=== PATIENT | female | born 1950 | race Caucasian/White ===

== ENCOUNTER 2017-09-06 00:17 | Inpatient (IN) | payer MEDICARE, OTHER ==
[2017-09-05 15:55] LABS: INR 0.98
[2017-09-06] VITALS (13 sets, daily range): BP systolic 124–151; BP diastolic 60–96
[~2017-09-06] VITALS: Ht 182.9 cm; Wt 87.4 kg
[~2017-09-06 00:17] MED LIST: DOCU100C49 PO; HYDR-317 PO; HYDR-385 PO; HYDR-4309 PO; OXYC-865 PO
[2017-09-06] MEDS ORDERED: ROPIVACAINE 0.2% 20 ML VIAL ONE (06:36)
[2017-09-06] MEDS ORDERED: LIDO/EPI 2% MPF 1:200,000 20ML ONE (06:36)
[2017-09-06] MEDS ORDERED: VANCOMYCIN(*) 1 GM VIAL 1 GM, VANCOMYCIN (*) 0.5 GM VIAL 0.25 GM in NS(*) 0.9% 250 ML B... IVPB ONE (07:45)
[2017-09-06] MEDS ORDERED: ROCURONIUM BROM 10 MG/ML 10 ML ONE (08:31)
[2017-09-06] MEDS ORDERED: LIDOCAINE MPF 1% 5 ML VIAL ONE (08:31)
[2017-09-06] MEDS ORDERED: DEXAMETHASONE SOD PHOS 10MG/ML ONE (08:31)
[2017-09-06] MEDS ORDERED: PROPOFOL EMUL(*) 10MG/ML 20 ML 20 ML ONE (08:31)
[2017-09-06] MEDS ORDERED: fentaNYL CITR 100 MCG/2 ML AMP ONE ×2 (08:31→11:02)
[2017-09-06] MEDS ORDERED: ONDANSETRON 4 MG/2 ML VIAL ONE (08:31)
[2017-09-06] MEDS ORDERED: MIDAZOLAM 2 MG/2 ML VIAL ONE (08:32)
[2017-09-06] MEDS ORDERED: LABETALOL HCL 100 MG/20ML VIAL ONE (09:30)
[2017-09-06] MEDS ORDERED: SUGAMMADEX SOD 200 MG/2 ML SDV ONE (10:21)
[2017-09-06] MEDS ORDERED: NORMOSOL R SOLN(*) 1000 ML BAG 1,000 ML IV ONE (10:53)
[2017-09-06] MEDS ORDERED: TRANEXAMIC AC 1000 MG/10ML SDV 1,000 MG in DEXTROSE 5% 50 ML BAG 50 ML IV ONE (11:00)
[2017-09-06] MEDS ORDERED: CELECOXIB 200 MG CAP PO ONE (11:00)
[2017-09-06] MEDS ORDERED: PREGABALIN 150 MG CAPSULE PO ONE (11:00)
[2017-09-06] MEDS ORDERED: FAMOTIDINE 20 MG TAB PO ONE (11:00)
[2017-09-06] MEDS ORDERED: LIDOCAINE/SOD BICARB 8.4% SYR ID ONE (11:00)
[2017-09-06] MEDS ORDERED: cloNIDine EPIDUR INJ 100MCG/ML 40 MCG, ROPIVACAINE 0.5% 20 ML VIAL 25 ML, EPINEPHrine H... EPI ONE (11:00)
[2017-09-06] MEDS ORDERED: CLINDAMYCIN(*) 900 MG/NS 50 ML 50 ML IVPB ONE (11:00)
[2017-09-06] MEDS ORDERED: ACETAMINOPHEN 500 MG TAB PO ONE (11:00)
[2017-09-06] MEDS ORDERED: MIDAZOLAM 2 MG/2 ML VIAL IVP PRN (11:00)
[2017-09-06] MEDS ORDERED: BACITRACIN 50000 UNIT/VIAL 100,000 UNIT in NS 0.9% 3000 ML IRRIGATION BAG 3,000 ML IR ONE (11:00)
[2017-09-06] MEDS ORDERED: NORMOSOL R SOLN(*) 1000 ML BAG 1,000 ML IV PRN (11:00)
[2017-09-06] MEDS ORDERED: BISACODYL 10 MG SUPP PR PRN (11:10)
[2017-09-06] MEDS ORDERED: ZOLPIDEM TARTRATE 5 MG TAB PO PRN (11:10)
[2017-09-06] MEDS ORDERED: diphenhydrAMINE 25 MG CAP PO PRN (11:10)
[2017-09-06] MEDS ORDERED: LR 1000 ML BAG 1000 ML IV PRN (11:10)
[2017-09-06] MEDS ORDERED: ONDANSETRON 4 MG/2 ML VIAL IVP PRN (11:10)
[2017-09-06] MEDS ORDERED: MAGNESIUM CITRATE 300 ML BTL PO PRN (11:10)
[2017-09-06] MEDS ORDERED: HYDROmorphone HCL 2 MG/ML SDV IVP PRN (11:10)
[2017-09-06] MEDS ORDERED: diphenhydrAMINE 50 MG/ML VIAL IVP PRN (11:10)
[2017-09-06] MEDS ORDERED: MAGNESIUM HYDROXIDE* 30ML UDCP PO PRN (11:10)
[2017-09-06] MEDS ORDERED: FLUSH 10 ML SYR IVP PRN (11:10)
[2017-09-06] MEDS: APAP/HYDROCODONE 325/5 TAB PO PRN ×3 (13:12→23:00)
--- NOTE | 2017-09-06 13:55 | Hospitalist Consultation ---
History of Present Illness Requesting Physician Dr. Jack Reason for Consult Medical Management Chief Complaint s/p left shoulder replacement History of Present Illness She was admitted s/p left shoulder replacement. It is reported the surgery went well and without complication. History Home Meds Discontinued Reported Medications Hydrocodone Bit/Acetaminophen (NORCO 5-325 TABLET) 1 Each Tablet, 1-2 EACH PO Q4 -6 Y for PAIN, #45 TAB 11/04/15 Allergies: Coded Allergies: Penicillins (Unverified Adverse Reaction, Severe, GI DISTRESS, 12/24/14) PT REACTS TO ALL 'CILLINS' WITH SEVERE GI DISTRESS. metoclopramide (Unverified Adverse Reaction, Severe, VERTIGO, 12/24/14) Uncoded Allergies: MOST PAIN MEDICATIONS (Adverse Reaction, Severe, 05/30/14) ONLY PAIN MEDS WHICH WORK FOR HER AND DO NOT CAUSE THIS ARE TORADOL AND VICODIN SHE STATES. Patient History: Patient reports no known family medical history. Hx Smoking: Yes (1 PPD X 30 QUIT 1999) Smoking Status: Former Smoker Exposure to Second Hand Smoke?: Yes Caffeine Intake: Coffee Caffeine/Cups Per Day: 2-3 Hx Alcohol Use: Yes Hx Substance Use Disorder: Yes (YOUTH "WEEKEND [employer]ARIAN TIME") Social Drug Use: Former Social Drugs: Marijuana Review of Systems All Systems Reviewed/Normal: Yes, Except as Noted Exam Vital Signs Vital Signs Date Time Temp Pulse Resp B/P (MAP) Pulse Ox O2 Delivery O2 Flow Rate FiO2 09/06/17 12:47 94 Nasal Cannula 1.0 09/06/17 12:34 97.9 66 24 149/76 (100) General Appearance: Alert, Awake, No Acute Distress, Afebrile Neuro: No Gross deficits Cardiovascular: Regular Rate and Rhythm Respiratory: No Respiratory Distress, Clear to Auscultation GI: Abd Soft and Non-Tender Psych: Alert & Oriented X3, Appropriate Mood & Affect Assessment and Plan Problems: (1) Status post replacement of left shoulder joint Status: Acute Assessment & Plan: Followed by Dr. Jack. She has no medical history and doesn't take medications. We will continue to follow patient for any further medical needs. She has requested to be DNR/DNI. Venous Thromboembolism Antithrombotics Is Pt On Any Antithrombotics?: No MINO BAIRD WORKERS COMPENSATION COORDINATOR Sep 06, 2017 13:55
--- NOTE | 2017-09-06 14:41 | RADIOLOGY IMAGING REPORT ---
FACILITY: [facility] PATIENT NAME: Radha Watson : 1950 MR: [id number] V: [id number] EXAM DATE: ORDERING PHYSICIAN: JUAN C CHING TECHNOLOGIST: Location: [facility] - [place] Patient: Radha Watson : 1950 Visit/Account:[id number] Date of Sevice: 09/06/2017 Exam type: SHOULDER 1 VIEW LEFT History: POST OP LEFT TSA Comparison: None. Findings: There is a reverse left shoulder arthroplasty that appears in good anatomic alignment on this single AP view IMPRESSION: 1. As above Report Dictated By: Mariel Shirley MD at 09/06/2017 2:36 PM Report E-Signed By: Mariel Shirley MD at 09/06/2017 2:37 PM WSN:[id number]
--- NOTE | 2017-09-06 19:46 | OPERATIVE REPORT 1 ---
EVENT DATE: September 06, 2017 SURGEON: Bennett Jack MD ANESTHESIOLOGIST: Timo Bergman MD ANESTHESIA: General LMA anesthesia. MEDICAL SURGICAL TECH: MICKIE Capone PREOPERATIVE DIAGNOSIS Left shoulder rotator cuff tear arthropathy. POSTOPERATIVE DIAGNOSIS Left shoulder rotator cuff tear arthropathy. PROCEDURE PERFORMED Left reverse total shoulder arthroplasty as well as the implant deep times two. FINDINGS Patient had a torn rotator cuff again. I removed the old anchors and sutures in order to make it amenable for a reverse total shoulder arthroplasty. ESTIMATED BLOOD LOSS About 150 mL. DRAINS None. COMPLICATIONS None. TOURNIQUET TIME Not applicable. IMPLANTS USED DJO Reverse with a 10 stem, a +4 humeral socket insert, size 32 liner, a standard reverse baseplate with a 32, -4 head, and then also retaining screws associated with it. He also had size 32 screws associated with the baseplate and 14 and 18 in the anterior and posterior respectively. SPECIMENS None. INDICATIONS AND HISTORY This patient is a 67-year-old female who presented to my clinic for evaluation of left shoulder pain and irritation. We had fixed her rotator cuff previously , and she continued to have some pain and irritation associated with it. So therefore, she wanted to go ahead with a reverse total shoulder arthroplasty today, September 06, 2017. The risks and benefits were discussed with the patient, and informed consent was obtained. She understands she may lose some motion associated with it, but it should relieve some of her pain and irritation associated with it, and that there was no major alternatives as she had torn her previously repaired rotator cuff. We also talked about how we removed the stitches from the old aspect. DESCRIPTION OF PROCEDURE As the patient was brought in the operating room, she and the procedure were both verified. She was placed supine on the operative table and induced and intubated by Anesthesia. She was then put in a beach chair position with the left arm out to the side, and the left arm was prepped and draped in the usual fashion. A timeout was observed verifying the correct patient and procedure. The standard incision was made over the anterior aspect of the shoulder. It was taken through the skin and subcutaneous tissue until I got down to the cephalic vein. Once I identified the cephalic vein, I went in to the deltopectoral interval and was able to get down into the clavipectoral fascia. Once I resected the clavipectoral fascia, I was able to identify the remnant of the biceps which we had cut previously and then was able to peel back the subscapularis without any major difficulty. Once I peeled back the subscapularis, I was able to label it for later repair and dislocate the shoulder. I then cut the shoulder without any major difficulty and then exposed the glenoid without any major issues. Once I was able to get a good exposure on the glenoid itself, I removed the remainder of the labrum and then prepped it for the baseplate. I then drilled the standard DJO drill bit, which was then followed by putting in the guide to ream and then reamed the standard reaming for a 32, -4 head with baseplate. I then put in the baseplate and then put in a 34 mm screw superiorly as well as inferiorly, and then I was able to put an anterior 18 mm screw and a posterior 14 mm screw in order to lock in the baseplate. There were no signs of problems or issues with motion associated with this. I then put in the 32, -4 head without any difficulty and then was able to put the set screw in without any issues. I then irrigated with copious amounts of saline as I had throughout the case with a pulse lavage. I then turned attention back to the humerus where I was able to remove the old suture anchors and the remaining suture. I then was able to ream down the femoral portion of the superior aspect of the humerus in order to make it amenable for the stem. I then also sized the canal in order to get it up to the stem. We were able to put the 12 in, but chose the 10 stem with bone grafting. We took the bone graft from the humeral head as well as from the metaphyseal portion of the humerus. I was then able to bone graft in a size 10 stem without any difficulty. I then passed five Ethibond sutures prior to the press fit of the humeral stem. Once I got everything in good position, I then irrigated again and then was able to put in the standard liner for the humeral side. This was found to have just a little bit less tension than desired, and so therefore, I then put in the +4 liner without any difficulty. I then irrigated with copious amounts of saline. I then put in the final liner and then closed the subscapularis using the five sutures that I placed previously and then was able to close a little bit of the interval above this in the equivalent of a six suture. I then irrigated again, closed the deltopectoral interval with 0 Stratafix, followed by 2-0 Stratafix in the subcuticular tissue, and 4-0 subcuticular running Monocryl. The wound was anesthetized with ropivacaine, and then a dressing with Steri-Strips, gauze 4 x 4's, and a soft dressing. Then, the patient was awakened, extubated, and transferred to PACU in stable condition. NESS
[2017-09-06] MEDS ORDERED: PATIENT'S OWN MED PO PRN (20:05)
[2017-09-06] MEDS: VANCOMYCIN(*) 1 GM VIAL 1 GM, VANCOMYCIN (*) 0.5 GM VIAL 0.25 GM in NS(*) 0.9% 250 ML B... IVPB SCH (20:55)
[2017-09-07 04:33] VITALS: BP 153/88
[2017-09-07 08:08] VITALS: BP 145/96
[2017-09-07] MEDS: APAP/HYDROCODONE 325/5 TAB PO PRN (09:38)
[2017-09-07] MEDS: VANCOMYCIN(*) 1 GM VIAL 1 GM, VANCOMYCIN (*) 0.5 GM VIAL 0.25 GM in NS(*) 0.9% 250 ML B... IVPB SCH (09:44)
[2017-09-07] MEDS ORDERED: HYDR-4309 PO (09:58)
--- NOTE | 2017-09-07 13:53 | Hospitalist Progress Note ---
Subjective Progress Notes Subjective She was admitted after shoulder surgery. She had no acute events overnight. Patient Complains of: Cardiovascular: No: Chest Pain Respiratory: No: Shortness of Breath Physical Exam Vital Signs Date Time Temp Pulse Resp B/P (MAP) Pulse Ox O2 Delivery O2 Flow Rate FiO2 09/07/17 08:08 97.4 68 16 145/96 (112) 94 Room Air 09/06/17 12:47 1.0 Intake and Output 09/08/17 01:00 Intake Total 240 ml Balance 240 ml Intake Oral 240 ml # Voids 1 General Appearance: Alert, Awake, No Acute Distress, Afebrile Neuro: No Gross deficits Cardiovascular: Regular Rate and Rhythm Respiratory: No Respiratory Distress, Clear to Auscultation GI: Soft and Non-Tender Psych: Alert & Oriented X3, Appropriate Mood & Affect Result Diagram: 09/07/17 0526 Assessment and Plan Problems: (1) Status post replacement of left shoulder joint Status: Acute Assessment & Plan: Followed by Dr. Jack. She has no medical history and doesn't take medications. We will continue to follow patient for any further medical needs. She has requested to be DNR/DNI. Exam Sepsis Risk: No Definite Risk MINO BAIRD EXECUTIVE VICE PRESIDENT AND CHIEF FINANCIAL OFFICER Sep 07, 2017 13:53
== END 2017-09-07 11:30 | disposition home or self-care (01) | DRG 483 ==
LOC: OR 00:17 → OBSVTOIN 12:20 → MED 12:20
PROVIDERS: ADMIT Orthopaedic Surgery; ATTEND Orthopaedic Surgery
PROC: 0RRK00Z Replacement of Left Shoulder Joint with Reverse Ball and Socket Synthetic Substitute, Open Approach (ICD-10-PCS; principal; 2017-09-06 08:56)
DX: M19.012 Primary osteoarthritis, left shoulder (principal); M75.122 Complete rotator cuff tear or rupture of left shoulder, not specified as traumatic; Z87.891 Personal history of nicotine dependence; Z88.0 Allergy status to penicillin; Z88.8 Allergy status to other drugs, medicaments and biological substances; Z66 Do not resuscitate
CPT/HCPCS: 36415; 85014; 85018; 85610; 86850; 86900; 86901; 97165; C1776; J0171; J0735; J1100; J1885; J2001; J2250; J2405; J2704; J2795; J3010; J3370; J3490; J7050